=== PATIENT | male | born 1985 | race Native Hawaiian/Other Pacific Islander ===

== ENCOUNTER 2021-01-20 07:15 | Emergency (ER) | payer SELFPAY ==
[2021-01-20 07:49] VITALS: BP 121/77
--- NOTE | 2021-01-20 09:54 | Emergency Department Report ---
ED Neck Pain/Injury HPI - General Chief Complaint: Pain General Stated Complaint: RT NECK PAIN Time Seen by Provider: 01/20/21 09:51 Mode of arrival: Ambulatory Limitations: Language Barrier - History of Present Illness Initial Comments: 35-year-old male presents to the ER today with complaints of right-sided neck pain. Patient states that he woke up this morning with pain in his right neck and pain when he moves his neck and his head. He also reports pain radiating down into his arm. He denies any recent injury but states that he does do lots of lifting at work. He denies any associated headache, fever, chills, chest pain, shortness of breath or any other symptoms. He states that he did not take any medications this morning for the pain. He denies any surgery to his spine or any issues with his neck in the past. MD Complaint: neck pain -: Gradual (woke up with it this morning ) - Related Data Previous Rx's Medication Instructions Recorded Last Taken Type Ketorolac [Toradol] 10 mg PO Q6H PRN #20 tablet 01/20/21 Unknown Rx Lidocaine [Lidoderm] 1 each TP Q12HR #10 adh..patch 01/20/21 Unknown Rx methOCARBAMOL [Robaxin TAB] 750 mg PO Q8H PRN #30 tablet 01/20/21 Unknown Rx Allergies Allergy/AdvReac Type Severity Reaction Status Date / Time No Known Allergies Allergy Unverified 01/20/21 07:52 ED Review of Systems ROS: Stated complaint: RT NECK PAIN Other details as noted in HPI Comment: All other systems reviewed and negative Constitutional: denies: chills, fever Eyes: denies: eye pain, eye discharge, vision change ENT: denies: ear pain, throat pain, dental pain, hearing loss, epistaxis, congestion Respiratory: denies: cough, shortness of breath, SOB with exertion, SOB at rest, wheezing Cardiovascular: denies: chest pain, palpitations, dyspnea on exertion, edema, syncope, paroxysmal nocturnal dyspnea Gastrointestinal: denies: abdominal pain, nausea, diarrhea, constipation, hematemesis, hematochezia Genitourinary: denies: urgency, dysuria, frequency, hematuria, discharge, testicular pain, testicular mass Musculoskeletal: myalgia, other (Right-sided neck pain). denies: back pain, joint swelling, arthralgia Skin: denies: rash, lesions, change in color, change in hair/nails, pruritus Neurological: denies: headache, weakness, numbness, paresthesias, confusion, abnormal gait, vertigo Psychiatric: denies: anxiety, depression, auditory hallucinations, visual hallucinations, homicidal thoughts, suicidal thoughts Hematological/Lymphatic: denies: easy bleeding, easy bruising, swollen glands ED Past Medical Hx - Medications Home Medications: Home Medications Medication Instructions Recorded Confirmed Last Taken Type Ketorolac [Toradol] 10 mg PO Q6H PRN #20 tablet 01/20/21 Unknown Rx Lidocaine [Lidoderm] 1 each TP Q12HR #10 adh..patch 01/20/21 Unknown Rx methOCARBAMOL [Robaxin TAB] 750 mg PO Q8H PRN #30 tablet 01/20/21 Unknown Rx ED Physical Exam - General Limitations: Language Barrier General appearance: alert, in no apparent distress - Head Head exam: Present: atraumatic, normocephalic, normal inspection - Eye Eye exam: Present: normal appearance, PERRL, EOMI Pupils: Present: normal accommodation - ENT ENT exam: Present: normal exam, mucous membranes moist - Neck Neck exam: Present: normal inspection, tenderness (Tenderness to palpation over the right trapezius and right paraspinal muscles with spasms noted.). Absent: meningismus, full ROM (Range of motion of the neck moderately reduced due to pain in the right side of the neck.) - Respiratory Respiratory exam: Present: normal lung sounds bilaterally. Absent: respiratory distress - Cardiovascular Cardiovascular Exam: Present: regular rate, normal rhythm, normal heart sounds - GI/Abdominal GI/Abdominal exam: Present: soft. Absent: distended, tenderness, guarding, rebound - Neurological Exam Neurological exam: Present: alert, oriented X3, CN II-XII intact, normal gait - Psychiatric Psychiatric exam: Present: normal affect, normal mood - Skin Skin exam: Present: intact ED Course Vital Signs 01/20/21 07:48 Temperature 97.9 F Pulse Rate 66 Respiratory 22 Rate Blood Pressure 121/77 O2 Sat by Pulse 100 Oximetry ED Medical Decision Making - Medical Decision Making 35-year-old male presents to the ER today with complaints of right-sided neck pain. Patient states that he woke up this morning with pain in his right neck and pain when he moves his neck and his head. He also reports pain radiating down into his arm. He denies any recent injury but states that he does do lots of lifting at work. He denies any associated headache, fever, chills, chest pain, shortness of breath or any other symptoms. He states that he did not take any medications this morning for the pain. He denies any surgery to his spine or any issues with his neck in the past. Patient history and physical exam suggest some neck spasm/torticollis. Patient is afebrile, he is not toxic or ill-appearing or in any significant distress. He is neurologically intact with a normal gait in the ER. I do not suspect meningitis, TIA/CVA vertebral artery/carotid artery dissection/aneurysm, intracranial abnormality, cardiopulmonary abnormality at this time. Discussed suspected diagnosis and treatment plan with patient. He expressed understanding of instructions and agree with plan. Patient stable at time of discharge. Critical care attestation.: If time is entered above; I have spent that time in minutes in the direct care of this critically ill patient, excluding procedure time. ED Disposition Clinical Impression: Torticollis, acute, Muscle spasms of neck Disposition: DC-01 TO HOME OR SELFCARE Is pt being admited?: No Does the pt Need Aspirin: No Condition: Stable Instructions: Muscle Cramps and Spasms, [id number], Acute Torticollis, Adult Additional Instructions: Take the Toradol and the Robaxin and use the Lidoderm patches as prescribed. Recommend gentle stretching exercises of the neck muscles. Follow-up with the primary care doctor listed in 1 week. Return to the ER if your symptoms worsens with associated headache and fever. Prescriptions: Lidocaine [Lidoderm] 1 each TP Q12HR #10 adh..patch methOCARBAMOL [Robaxin TAB] 750 mg PO Q8H PRN #30 tablet PRN Reason: Spasms Ketorolac [Toradol] 10 mg PO Q6H PRN #20 tablet PRN Reason: Pain Referrals: ANNETTE CRUZ MD [Staff Physician] - 3-5 Days Forms: Work/School Release Form(ED) Time of Disposition: 09:54
[2021-01-20] MEDS ORDERED: KETOROLAC 10 MG TAB PO ONE (09:55)
[2021-01-20] MEDS ORDERED: ACETAMINOPHEN 325 MG TAB PO ONE (09:55)
[2021-01-20] MEDS ORDERED: CYCLOBENZAPRINE 10 MG TAB PO ONE (09:55)
== END 2021-01-20 10:33 | disposition home or self-care (01) ==
LOC: ED 07:15
DX: M43.6 Torticollis (principal); M62.838 Other muscle spasm; M54.2 Cervicalgia; R51.9 Headache, unspecified; Z79.899 Other long term (current) drug therapy
CPT/HCPCS: 99283